=== PATIENT | female | born 1960 | race African-American/Black ===

== ENCOUNTER → 2016-10-08 | Outpatient (CLI) | payer OTHER ==
[~2016-10-08] MED LIST: DIOVAN40 MG PO; LORTAB 7.5-5001 TAB PO; LOSARTAN POTASS25 MG PO; LOSARTAN-HCTZ1 EAC1 PO; NEXIUM PO; NEXIUM20 MG PO; PANTOPRAZOLE SO40 MG PO; VITAMIN B 12 PO
--- NOTE | ~2016-10-08 | CR169 ---
[facility] A Service of [facility] RADIOLOGY TEXT RESULTS PATIENT: NAMRATA HARE LOCATION: [facility] : 58 UNIT #: [id number] AGE: [address]: Yesi Donohue APRN SEX: F ORDER DR: [id number] [facility] [address] [place], [place] [address] [id number] O MR#: [id number] Acc #: [id number] NAME: NAMRATA HARE : 1960 SEX: F STUDY DATE/TIME: 10/08/2016 17:23 UNIT: [facility] ROOM: STUDY DESCRIPTION: CR Knee 2 Views Lt Attending Physician: Yesi Donohue Aprn Referring Physician: Yesi Donohue Aprn Ordering Physician: Yesi Donohue Aprn Primary Care Physician: Allyssa Hopkins M.D. MEDICAL IMAGING REPORT This report is preliminary unless electronic signature is present EXAM Left knee. DATE OF EXAM 10/08/2016 INDICATIONS 56-year-old female with left hip and the and femoral pain. Pain 2 months. Symptoms worse for the past 2 weeks especially at night and when weightbearing. No known injury. REPORT 2 views of the left knee. COMPARISON No comparisons. FINDINGS No acute fracture. No joint effusion. Mild tricompartmental joint space narrowing and enthesopathic changes of the patella. IMPRESSION Mild degenerative change, otherwise, negative. Dictated by... Kong Hampton M.D. THIS IS AN ELECTRONICALLY VERIFIED REPORT Kong Hampton M.D. at 10/10/2016 11:08 AM SHAR/lucian TD: 10/09/2016 20:05 [facility] A Service [facility] RADIOLOGY TEXT RESULTS PATIENT: NAMRATA HARE LOCATION: [facility] : 58 UNIT #: [id number] AGE: [address]: Yesi Donohue APRN SEX: F ORDER DR: MERCEDES #: [id number] MEDICAL IMAGING REPORT Page 1 of 1 COPY
--- NOTE | ~2016-10-08 | CR150 ---
[facility] A Service of [facility] & [facility] RADIOLOGY TEXT RESULTS PATIENT: NAMRATA HARE LOCATION: [facility] : 58 UNIT #: [id number] AGE: [address]: Yesi Donohue APRN SEX: F ORDER DR: [id number] [facility] [address] [place], [place] [address] [id number] O MR#: [id number] Acc #: [id number] NAME: NAMRATA HARE : 1960 SEX: F STUDY DATE/TIME: 10/08/2016 17:28 UNIT: [facility] ROOM: STUDY DESCRIPTION: CR Hip Min 2 Views Lt Attending Physician: Yesi Donohue Aprn Referring Physician: Yesi Donohue Aprn Ordering Physician: Yesi Donohue Aprn Primary Care Physician: Allyssa Hopkins M.D. MEDICAL IMAGING REPORT This report is preliminary unless electronic signature is present EXAM Left hip 2 views 10/08/2016 HISTORY Left hip and the left leg pain for 2 months, worsening the last 2 weeks. No known injury. FINDINGS AP and oblique examination of the hip shows adequate mineralization of the bones and a normal anatomic relationship of the femoral head with the acetabulum. There are no hypertrophic changes, fractures, dislocation, or joint capsular distension. No radiopaque foreign body is present about the soft tissues of the hip. IMPRESSION Normal hip. Dictated by... Philip Navarro M.D. THIS IS AN ELECTRONICALLY VERIFIED REPORT Philip Navarro M.D. at 10/10/2016 3:39 PM KRT/pcl TD: 10/09/2016 21:29 JOB #: [id number] MEDICAL IMAGING REPORT Page 1 of 1 COPY
--- NOTE | ~2016-10-08 | CR106 ---
[facility] A Service of [facility] & [facility] RADIOLOGY TEXT RESULTS PATIENT: NAMRATA HARE LOCATION: [facility] : 58 UNIT #: [id number] AGE: [address]: Yesi Donohue APRN SEX: F ORDER DR: [id number] [facility] [address] [place], [place] [address] [id number] O MR#: [id number] Acc #: [id number] NAME: NAMRATA HARE : 1960 SEX: F STUDY DATE/TIME: 10/08/2016 17:33 UNIT: [facility] ROOM: STUDY DESCRIPTION: CR Femur 2 Views Lt Attending Physician: Yesi Donohue Aprn Referring Physician: Yesi Donohue Aprn Ordering Physician: Yesi Donohue Aprn Primary Care Physician: Allyssa Hopkins M.D. MEDICAL IMAGING REPORT This report is preliminary unless electronic signature is present EXAM Left femur 4 views 10/08/2016 HISTORY Left femur pain for 2 months, worsening in the last 2 weeks, primarily with weightbearing. No known injury. FINDINGS AP and lateral views of the femur show no evidence of fracture, bone destruction, or periosteal elevation. Adjacent soft tissue structures are normal. IMPRESSION Normal femur. Dictated by... Philip Navarro M.D. THIS IS AN ELECTRONICALLY VERIFIED REPORT Philip Navarro M.D. at 10/10/2016 3:39 PM KRT/pcl TD: 10/09/2016 21:30 JOB #: [id number] MEDICAL IMAGING REPORT Page 1 of 1 COPY
== END | disposition home or self-care (01) ==
LOC: CRAD 17:06
DX: M79.652 Pain in left thigh (principal)
CPT/HCPCS: 73502; 73552; 73560